=== PATIENT | female | born 1980 | race Caucasian/White ===

== ENCOUNTER 2016-11-03 14:50 | Emergency (ER) | payer BC, OTHER ==
[~2016-11-03] VITALS: Ht 177.8 cm; Wt 113.4 kg
[~2016-11-03 14:50] MED LIST: FEXO180T PO; FLUO40CA PO; HYDR1TAB66 PO; HYDR1TAB75 PO; LVT.05T PO; MTF500T PO; NAPR-243 PO; TETR250C3 PO
[2016-11-03] MEDS ORDERED: NS IV 1000 ML 1,000 ML IV ONE (14:59)
[2016-11-03] MEDS ORDERED: SULF-222 (15:03)
[2016-11-03] MEDS ORDERED: BUSP5TAB59 (15:03)
[2016-11-03 15:13] LABS: BASOPHILS % (AUTO) 0 % (0-10); EOSINOPHILS # (AUTO) 0.1 10^3/uL (0.0-0.3); EOSINOPHILS % (AUTO) 1 % (0-10); LYMPHOCYTES # (AUTO) 3.3 X 10^3 (1.0-4.0); LYMPHOCYTES % (AUTO) 29 % (12-44); MEAN CORPUSCULAR HEMOGLOBIN 31 PG (25-34); MEAN CORPUSCULAR HGB CONC 36 G/DL (32-36); MEAN CORPUSCULAR VOLUME 88 FL (80-99); MEAN PLATELET VOLUME 11.1 FL (7.4-10.4); MONOCYTES # (AUTO) 0.8 X 10^3 (0.0-1.0); MONOCYTES % (AUTO) 7 % (0-12); NEUTROPHILS % (AUTO) 63 % (42-75); PLATELET COUNT 279 10^3/uL (130-400); RED BLOOD COUNT 4.53 10^6/uL (4.35-5.85); RED CELL DISTRIBUTION WIDTH 13.2 % (10.0-14.5); WHITE BLOOD COUNT 11.2 10^3/uL (4.3-11.0)
[2016-11-03 16:05] LABS: PROTHROMBIN TIME PATIENT 12.7 SEC (12.2-14.7)
[2016-11-03 16:06] LABS: PARTIAL THROMBOPLASTIN TIME 28 SEC (24-35)
[2016-11-03 16:14] LABS: ALANINE AMINOTRANSFERASE 78 U/L (0-55); ALBUMIN 4.5 G/DL (3.2-4.5); AMYLASE 33 U/L (25-125); ANION GAP 9 MMOL/L (5-14); ASPARTATE AMINO TRANSFERASE 32 U/L (5-34); BILIRUBIN,TOTAL 0.3 MG/DL (0.1-1.0); BLOOD UREA NITROGEN 13 MG/DL (7-18); BUN/CREATININE RATIO 12; CALCIUM 9.2 MG/DL (8.5-10.1); CARBON DIOXIDE 20 MMOL/L (21-32); CHLORIDE 111 MMOL/L (98-107); CREATININE SERUM 1.07 MG/DL (0.60-1.30); GFR ESTIMATED 59; GLUCOSE 98 MG/DL (70-105); MAGNESIUM 2.3 MG/DL (1.8-2.4); POTASSIUM 3.7 MMOL/L (3.6-5.0); SODIUM 140 MMOL/L (135-145); TOTAL PROTEIN 7.1 G/DL (6.4-8.2)
[2016-11-03 16:34] LABS: TROPONIN I < 0.30 NG/ML (<0.30)
[2016-11-03 16:45] LABS: BILIRUBIN,URINE NEGATIVE (NEGATIVE); KETONES,URINE NEGATIVE (NEGATIVE); LEUKOCYTE ESTERASE ,URINE NEGATIVE (NEGATIVE); NITRITE,URINE NEGATIVE (NEGATIVE); PH,URINE 7 (5-9); PROTEIN,URINE NEGATIVE (NEGATIVE); UROBILINOGEN,URINE NORMAL (NORMAL)
[2016-11-03 16:51] LABS: SQUAMOUS EPITHELIAL CELL,UR 0-2 /HPF
--- NOTE | 2016-11-03 17:15 | ED General ---
General Chief Complaint: Dizziness/Syncope Stated Complaint: SYNCOPE Nursing Triage Note: TO ED PER EMS FROM WORK AT [facility]. FELT LIKE SHE WAS GOING TO PASS OUT SAT HERSELF ON THE GROUND REORTS THAT SHE WAS SEEN [facility] FOR ANXIETY STARTED ON BUSPAR AND BACTRIM FOR UTI. Nursing Sepsis Screen: No Definite Risk Source of Information: Patient, EMS History of Present Illness Time Seen by Provider: 14:53 Initial Comments PT ARRIVES VIA EMS FROM PT'S WORKPLACE/[facility] PT STATES SHE WAS WALKING AT WORK AND HAD A NEAR-SYNCOPAL EPISODE EMS REPORT THAT PT WAS ORTHOSTATIC AND IV FLUIDS WERE STARTED BY EMS PT DENIES PAIN ANYWHERE NO HEADACHE NO VISION CHANGES NO CHEST PAIN OR SHORTNESS OF BREATH NO SWEATS C/O NAUSEA OFF AND ON BUT NOT NOW, NO VOMITING. NO DIARRHEA NO ABDOMINAL PAIN NO PARESTHESIAS OR MOTOR DEFICITS NO URINARY DIFFICULTY NO HISTORY OF SIMILAR PT WAS SEEN AT [facility] LAST WEEK FOR ANXIETY AND WAS STARTED ON BUSPAR FOR ANXIETY AND BACTRIM FOR UTI. PT HAS NOT FOLLOWED UP WITH ANYONE SINCE THAT VISIT PCP: DR. SNEED Allergies and Home Medications Allergies Coded Allergies: Amoxicillin Trihydrate (Unverified Allergy, Mild, rash, 07/10/11) Potassium Clavulanate (Unverified Allergy, Mild, rash, 07/10/11) Home Medications Buspirone HCl 5 Mg Tablet #45 (Reported) Fexofenadine Hcl 180 Mg Tablet 200 MG PO DAILY (Reported) Fluoxetine Hcl 40 Mg Capsule 1 EACH PO DAILY (Reported) Hydrocodone Bit/Acetaminophen 1 Each Tablet 1 EACH PO Q4H PRN PRN (Reported) Hydrocodone Bit/Acetaminophen 1 Each Tablet #60 1-2 EACH PO Q 3HRS. PRN PRN ( Reported) Levothyroxine Sodium 50 Mcg Tablet 1 EACH PO DAILY (Reported) Metformin Hcl 500 Mg Tablet 1 EACH PO BID WITH MEALS (Reported) Naproxen 500 Mg Tablet 1 EACH PO NEEDED (Reported) Sulfamethoxazole/Trimethoprim 1 Each Tablet #14 (Reported) Tetracycline Hcl 250 Mg Capsule 250 MG PO BID (Reported) Constitutional: see HPI EENTM: no symptoms reported Respiratory: no symptoms reported Cardiovascular: no symptoms reported Gastrointestinal: see HPINo abdominal pain, loss of appetite nauseaNo vomiting Genitourinary: no symptoms reported see HPI : No Musculoskeletal: no symptoms reported Skin: no symptoms reported Psychiatric/Neurological: See HPIDenies Headache, Denies Numbness, Denies Paresthesia, Denies Seizure, Denies Tingling, Denies Tremors, Denies Weakness Hematologic/Lymphatic: No Symptoms Reported Immunological/Allergic: no symptoms reported Past [id number] Hx Patient Social History Alcohol Use: Denies Use Recreational Drug Use: No Smoking Status: Current Everyday Smoker (1/2 PPD) Recent Foreign Travel: No Contact w/Someone Who Travel: No Recent Infectious Disease Expo: No Recent Hopitalizations: Yes Physical Abuse Screen: No Sexual Abuse: No Surgeries HX Surgeries: Yes ( X3, DX LAP WITH RIGHT OVARIAN CYSTECTOMY AND APPENDECTOMY; HYST/BSO) Surgeries: Abdominal, Appendectomy, Section, Hysterectomy, Oophorectomy Respiratory Hx Respiratory Disorders: No Cardiovascular Hx Cardiac Disorders: No Neurological Hx Neurological Disorders: No Reproductive System Hx Reproductive Disorders: No Genitourinary Hx Genitourinary Disorders: No Gastrointestinal Hx Gastrointestinal Disorders: Yes Gastrointestinal Disorders: Gastroesophageal Reflux Musculoskeletal Hx Musculoskeletal Disorders: No Endocrine Hx Endocrine Disorders: Yes Endocrine Disorders: Hypothyroidsim HEENT HX ENT Disorders: No Psychosocial Hx Psychiatric Problems: Yes Behavioral Health Disorders: Anxiety Integumentary HX Skin/Integumentary Disorder: No Blood Transfusions Hx Blood Disorders: No Physical Exam Vital Signs Vital Sign - Last 12Hours 11/03/16 14:50 Temp 99.7 Pulse 90 Resp 18 B/P 122/66 Pulse Ox 98 O2 Delivery Room Air Capillary Refill : Less Than 3 Seconds General Appearance: No Apparent Distress WD/WN Obese HEENT: PERRL/EOMI TMs Normal Normal ENT Inspection Pharynx Normal Neck: Full Range of Motion Normal Inspection Non Tender Supple Respiratory: Normal Breath Sounds No Accessory Muscle Use No Respiratory Distress Cardiovascular: Regular Rate, Rhythm No Edema No JVD No Murmur Normal Peripheral Pulses Gastrointestinal: Normal Bowel Sounds No Organomegaly No Pulsatile Mass Non Tender Soft Back: Normal Inspection No CVA Tenderness No Vertebral Tenderness Extremity: Normal Capillary Refill Normal Inspection Normal Range of Motion Non Tender No Calf Tenderness No Pedal Edema Neurologic/Psychiatric: Alert Oriented x3 No Motor/Sensory Deficits Normal Mood/Affect pairer substandard II-XII Norm as Tested Skin: Normal Color Warm/Dry Progress/Results/Core Measures Results/Orders Lab Results Laboratory Tests Test 11/03/16 15:00 11/03/16 15:44 1/2/17 16:38 Range/Units Basophils # (Auto) 0.0 0.0-0.1 10^3/uL Basophils (%) (Auto) 0 0-10 % Eosinophils # (Auto) 0.1 0.0-0.3 10^3/uL Eosinophils (%) (Auto) 1 0-10 % Hematocrit 40 35-52 % Hemoglobin 14.2 11.5-16.0 G/DL Lymphocytes # (Auto) 3.3 1.0-4.0 X 10^3 Lymphocytes (%) (Auto) 29 12-44 % Mean Corpuscular Hemoglobin 31 25-34 PG Mean Corpuscular Hemoglobin Concent 36 32-36 G/DL Mean Corpuscular Volume 88 80-99 FL Mean Platelet Volume 11.1 H 7.4-10.4 FL Monocytes # (Auto) 0.8 0.0-1.0 X 10^3 Monocytes (%) (Auto) 7 0-12 % Neutrophils # (Auto) 7.0 1.8-7.8 X 10^3 Neutrophils (%) (Auto) 63 42-75 % Platelet Count 279 130-400 10^3/uL Red Blood Count 4.53 4.35-5.85 10^6/uL Red Cell Distribution Width 13.2 10.0-14.5 % White Blood Count 11.2 H 4.3-11.0 10^3/uL Activated Partial Thromboplast Time 28 24-35 SEC Alanine Aminotransferase (ALT/SGPT) 78 H 0-55 U/L Albumin 4.5 3.2-4.5 G/DL Alkaline Phosphatase 78 40-136 U/L Amylase Level 33 25-125 U/L Anion Gap 9 5-14 MMOL/L Aspartate Amino Transf (AST/SGOT) 32 5-34 U/L BUN/Creatinine Ratio 12 Blood Urea Nitrogen 13 7-18 MG/DL Calcium Level 9.2 8.5-10.1 MG/DL Carbon Dioxide Level 20 L 21-32 MMOL/L Chloride Level 111 H 98-107 MMOL/L Creatinine 1.07 0.60-1.30 MG/DL D-Dimer < 0.27 0.00-0.49 UG/ML Estimat Glomerular Filtration Rate 59 Glucose Level 98 70-105 MG/DL INR Comment 1.0 0.8-1.4 Magnesium Level 2.3 1.8-2.4 MG/DL Potassium Level 3.7 3.6-5.0 MMOL/L Prothrombin Time 12.7 12.2-14.7 SEC Sodium Level 140 135-145 MMOL/L TSH [place] Testing 1.76 0.35-4.94 UIU/ML Total Bilirubin 0.3 0.1-1.0 MG/DL Total Protein 7.1 6.4-8.2 G/DL Troponin I < 0.30 <0.30 NG/ML Ur Tricyclic Antidepressants Screen NEGATIVE NEGATIVE Urine Amphetamines Screen NEGATIVE NEGATIVE Urine Bacteria NONE /HPF Urine Barbiturates Screen NEGATIVE NEGATIVE Urine Benzodiazepines Screen NEGATIVE NEGATIVE Urine Bilirubin NEGATIVE NEGATIVE Urine Cannabinoids Screen NEGATIVE NEGATIVE Urine Casts NONE /LPF Urine Clarity SLIGHTLY CLOUDY Urine Cocaine Screen NEGATIVE NEGATIVE Urine Color YELLOW Urine Crystals NONE /LPF Urine Culture Indicated NO Urine Glucose (UA) NEGATIVE NEGATIVE Urine Ketones NEGATIVE NEGATIVE Urine Leukocyte Esterase NEGATIVE NEGATIVE Urine Methadone Screen NEGATIVE NEGATIVE Urine Methamphetamines Screen NEGATIVE NEGATIVE Urine Mucus NEGATIVE /LPF Urine Nitrite NEGATIVE NEGATIVE Urine Opiates Screen NEGATIVE NEGATIVE Urine Oxycodone Screen NEGATIVE NEGATIVE Urine Phencyclidine Screen NEGATIVE NEGATIVE Urine Propoxyphene Screen NEGATIVE NEGATIVE Urine Protein NEGATIVE NEGATIVE Urine RBC NONE /HPF Urine RBC (Auto) NEGATIVE NEGATIVE Urine Specific [employer] 1.005 L 1.016-1.022 Urine Squamous Epithelial Cells 0-2 /HPF Urine Urobilinogen NORMAL NORMAL MG/DL Urine WBC NONE /HPF Urine pH 7 5-9 My Orders Orders-JOHN PATTERSON DO Saline Lock/Iv-Start (11/03/16 14:59) Ekg Tracing (11/03/16 14:59) Monitor-Rhythm Ecg Trace Only (11/03/16 14:59) Amylase (11/03/16 14:59) Cbc With Automated Diff (11/03/16 14:59) Comprehensive Metabolic Panel (11/03/16 14:59) Fibrin Degradation Products (11/03/16 14:59) Drug Screen Stat (Urine) (11/03/16 14:59) Magnesium (11/03/16 14:59) Protime With Inr (11/03/16 14:59) Partial Thromboplastin Time (11/03/16 14:59) Thyroid Analyzer (11/03/16 14:59) Troponin I (11/03/16 14:59) Ua Culture If Indicated (11/03/16 14:59) Ns Iv 1000 Ml (Sodium Chloride 0.9%) (11/03/16 14:59) Orthostatic Vital Signs (11/03/16 14:59) Orthostatic Vital Signs (11/03/16 17:16) Medications Given in ED Current Medications Medications Dose Ordered Sig/Obdulio Route Start Time Stop Time Status Last Admin Dose Admin Sodium Chloride 1,000 ml @ 0 mls/hr Q0M ONCE IV 11/03/16 14:59 11/03/16 15:02 DC 11/03/16 16:51 1,000 MLS/HR Vital Signs/I&O Vital Sign - Last 12Hours 11/03/16 11/03/16 11/03/16 14:50 15:11 17:25 Temp 99.7 Pulse 90 90 81 98 79 89 Resp 18 B/P 122/66 Pulse Ox 98 O2 Delivery Room Air Blood Pressure Mean: 84 Progress Note : Progress Note UNEVENTFUL ER STAY ORTHOSTATICS NORMAL AFTER 2 LITERS OF FLUIDS ECG Initial ECG Impression Time: 15:13 Initial ECG Rate: 77 Initial ECG Rhythm: Normal Sinus (IVCD) Initial ECG Comparisson: Unchanged Departure Impression Impression: Primary Impression: Near syncope Additional Impression: Volume depletion Disposition: 01 HOME, SELF-CARE Condition: Improved Departure-Patient Inst. Referrals: JOHN SNEED MD (PCP/Family) Primary Care Physician Patient Instructions: Dehydration, Adult (DC), Syncope (Fainting) (DC) Add. Discharge Instructions: LOTS OF CLEAR LIQUIDS--WATER, BROTH, JELLO, GATORADE--DRINK ENOUGH SO YOU ARE URINATING EVERY 2-3 HOURS SLOW POSITION CHANGES FOLLOW UP WITH YOUR DR IF SYMPTOMS PERSIST, RETURN TO ER IF WORSE All discharge instructions reviewed with patient and/or family. Voiced understanding. JOHN PATTERSON DO Nov 03, 2016 17:15
[2016-11-03 18:33] VITALS: BP 135/68
== END 2016-11-03 18:33 | disposition home or self-care (01) ==
LOC: EDUNIT# 14:50 → ER 14:51
DX: R55 Syncope and collapse (principal); E86.9 Volume depletion, unspecified; F17.210 Nicotine dependence, cigarettes, uncomplicated
CPT/HCPCS: 36415; 80053; 80306; 81000; 82150; 83735; 84443; 84484; 85025; 85379; 85610; 85730; 93005; 93041; 96360; 96361